=== PATIENT | male | born 1995 | race Caucasian/White ===

== ENCOUNTER 2021-08-20 20:36 | Emergency (ER) | payer SELFPAY ==
[2021-08-20 20:59] LABS: BILIRUBIN NEGATIVE (NEGATIVE); BLOOD NEGATIVE Ery/uL (NEGATIVE); CLARITY CLEAR (CLEAR); COLOR YELLOW (YELLOW); GLUCOSE (U) NORMAL (NORMAL); LEUKOCYTES NEGATIVE Leu/uL (NEGATIVE); NITRITE NEGATIVE (NEGATIVE); PROTEIN NEGATIVE (NEGATIVE); SPECIFIC GRAVITY >=1.030 (1.001-1.030); UROBILINOGEN 0.2 mg/dL (0.2-1.0)
[2021-08-20 21:03] LABS: AMPHETAMINES NEGATIVE (NEGATIVE); BARBITURATES NEGATIVE (NEGATIVE); ECSTASY (MDMA) NEGATIVE (NEGATIVE); MARIJUANA (THC) NEGATIVE (NEGATIVE); METHADONE NEGATIVE (NEGATIVE); OPIATES NEGATIVE (NEGATIVE); OXYCODONE NEGATIVE (NEGATIVE)
[2021-08-20 21:16] LABS: BASOPHIL 0.7 % (0-2); EOSINOPHIL 3.9 % (0-5); HCT 45.4 % (42.0-52.0); HGB 16.1 g/dl (13.2-18.0); LYMPHOCYTE 25.3 % (15-48); MCH 30.6 pg (25.0-31.0); MCHC 35.5 g/dL (32.0-36.0); MCV 86.3 fL (78.0-100.0); MONOCYTE 5.2 % (0-12); MPV 9.8 fL (6.0-9.5); NEUTROPHIL 64.6 % (41-80); NRBC 0; PLT 334 K/uL (150-400); RBC 5.26 M/uL (4.70-6.00); RDW 11.5 % (11.5-14.0); WBC 9.5 K/uL (4.0-10.5)
[2021-08-20 21:30] LABS: ALBUMIN 3.9 g/dL (3.4-5.0); BILIRUBIN - TOTAL 0.3 mg/dL (0.2-1.0); BUN/CREAT RATIO (CALC) 11.8 RATIO; CREATININE 0.93 mg/dL (0.67-1.17); GLOBULIN (CALCULATION) 4.2 g/dL; POTASSIUM 3.7 mmol/L (3.5-5.1); TOTAL PROTEIN 8.1 g/dL (6.4-8.2)
[2021-08-20] MEDS ORDERED: VIBRAMYCIN100 MG PO (23:38)
== END 2021-08-21 00:03 | disposition home or self-care (01) ==
LOC: FER 20:36
PROVIDERS: Internal Medicine
DX: L03.311 Cellulitis of abdominal wall (principal); Z88.0 Allergy status to penicillin
CPT/HCPCS: 36415; 80053; 80305; 81003; 85025; J1170; Q9967